=== PATIENT | female | born 1980 | race Caucasian/White ===

== ENCOUNTER → 2021-01-13 13:22 | Outpatient (CLI) | payer OTHER, SELFPAY ==
--- NOTE | 2021-01-13 13:37 | CT_ITS ---
STUDY: CTA CHEST REASON FOR EXAM: Female, 40 years old. PNEUMONIA. History of recent Covid. RADIATION DOSAGE (If Supplied By Facility): CTDIvol = ( 4.04 ) mGy, DLP = ( 120.00 ) mGycm TECHNIQUE: The examination was performed with the intravenous administration of IV 75mL Isovue-[id number]. Post-processing of the angiographic images was performed, with multiplanar reformation and 3D reconstruction. Individualized dose optimization techniques were used for this CT. COMPARISON: None. FINDINGS: Normal enhancement of the main pulmonary artery and right and left pulmonary arteries. Normal enhancement of the bilateral peripheral pulmonary arteries. There is no demonstrated pulmonary embolism. Normal thoracic aorta and visualized great vessels. There is no demonstrated aortic dissection. Normal heart and pericardium. Normal mediastinum. Normal hilar regions. Normal visualized trachea and bronchi. The lungs are well expanded. Normal pulmonary parenchyma. Normal pleura. Normal chest wall structures. Normal osseous structures. Normal visualized upper abdomen. CT/CTA Chest W/WO Contrast IMPRESSION: Normal CTA chest examination, without a demonstrated pulmonary embolism or arterial dissection. Electronically Signed: Phoenix Vale MD at 14:19 EDT , Service support ,
== END ==
DX: U07.1 COVID-19 (principal)
CPT/HCPCS: 71275; Q9967